=== PATIENT | male | born 2000 | race Asian ===

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

== ENCOUNTER 2025-02-03 19:34 | Inpatient (IN) ==
[2025-02-03] MEDS: SODIUM CHLORIDE 0.9% 1,000 ML IV ONE ×2 (20:08→22:08)
[2025-02-03 20:20] LABS: Hematocrit (blood only) 49.2 % (42.0-52.0); Hemoglobin 16.7 g/dl (14.0-18.0); Immature Granulocytes # (auto) 0.03 K/uL (0.01-0.20); Immature Granulocytes % (auto) 0.2 %; Mean Corpuscular Hemoglobin 28.6 pg (25.0-34.0); Mean Corpuscular Volume 84.4 fL (80.0-100.0); Platelet Count 308 K/uL (130-400); RDW Standard Deviation 39.0 fL (36.4-46.3); Red Blood Count 5.83 M/uL (4.70-6.10); White Blood Count 12.44 K/ul (4.8-10.8)
--- NOTE | 2025-02-03 20:34 | Emergency Department Note ---
Impression & Plan Rhabdomyolysis, Myalgia ED Provider Note ED Provider Note NAME: BRANDEE HEDRICK AGE:24 SEX: Male : 2000 ARRIVES VIA: Private vehicle INFORMANT: Patient ED PROVIDER(s): Yumiko Kearney DO CHIEF COMPLAINT: Dark-colored urine, muscle cramps HPI: This is a 24-year-old male presents to the emergency department due to concern for dark-colored urine noted today as well as muscle cramps over the last 2 days since he had an intense workout on Thursday. Patient states he was concerned for rhabdomyolysis as he has seen this happen before but never sought any medical evaluation. He denies fevers or chills, abdominal pain, back pain, he states most of the pain is in his thighs as he had a workout on Thursday that was more concentrated on the lower bladder than the upper body. He denies any change in bowel movements. He denies any pain or discomfort with urination. He states he has been drinking lots of water over the last 2 days out of precaution. PAST MEDICAL HISTORY:See Below PAST SURGICAL HISTORY:See Below FAMILY HISTORY:See Below SOCIAL HISTORY:See Below HOME MEDICATIONS:See Below ALLERGIES:See Below VITALS:See Below PHYSICAL EXAMINATION: GENERAL: alert, well appearing, well nourished, no distress, non-toxic EYE EXAM: normal conjunctiva, PERRL and EOM's grossly intact OROPHARYNX: no exudate, no erythema, lips, buccal mucosa, and tongue normal and mucous membranes are moist NECK: supple, no nuchal rigidity, no adenopathy, non-tender LUNGS: Clear to auscultation. Normal chest wall mechanics, no w/r/r HEART: no murmurs, S1 normal and S2 normal ABDOMEN: abdomen soft, non-tender, normo-active bowel sounds, no masses, no rebound or guarding. SKIN: no rashes, petechiae, orbruising UPPER EXTREMITIES: upper extremities are grossly normal. FROM, nml pulses b/l. LOWER EXTREMITIES: No pitting edema. FROM, nml pulses b/l. Compartments soft, no joint effusions, no evidence of trauma or deformity. No pain with palpation along the major muscle groups. NEURO EXAM: Normal sensorium, cranial nerves II-XII grossly intact, normal speech, no facial droop,nogross weakness of arms, no gross weakness of legs. Gross sensation intact. No ataxia. Vital Signs: reviewed and remarkable Differential Diagnosis: HOPE, electrolyte abnormality, dehydration, rhabdomyolysis, medication adr, viral syndrome, as well as others were considered MEDICAL DECISION MAKING: THis is a 24 yo male who presents to the ER with myalgias and dark colored urine after strenuous exercise 2 days prior. He was afebrile and VS stable. Labs drawn and sent, IV established, EKG performed and interpreted at bedside, and patient placed on telemetry. He was started on IVF. Patient noted to have significantly elevated CK. No HOPE. Given concern for rhabdo, case discussed with the hospitalist team for additional evaluation and mgmt. He was continued on IVF while in theER. Patient updated on all results and verbalized understanding. Consultation(s): 2345: Discussed with Dr. Marcano, [facility] hospitalist team, for additional evaluation and management. ER Treatment Provided: See below Diagnostics Interpreted By Me: -ECG: Normal sinus at 91, rightward axis, normal intervals, no acute ST/T wave changes -Cardiac Monitoring: An order was placed for continuous cardiac monitoring. The monitor shows a rate of 80 with normal sinus rhythm. -Laboratory studies: As stated above and show below. Triage Nursing Note Reviewed Prior/Outside Records Reviewed Past Med/Surg History Problem List (Updated 02/04/25 @ 00:15 by Aubree Lopez PA-C) Leukocytosis Transaminitis Rhabdomyolysis (Acute) Myalgia (Acute) Dyspepsia Subclinical hypothyroidism (Chronic) Vitamin D deficiency (Chronic) Seborrheic dermatitis of scalp (Chronic) Medical History Vitamin D deficiency Subclinical hypothyroidism Anal fistula Surgical History History of rectal surgery (02/21/22) History of oral surgery Perirectal abscess Family History Denies family history of Ovarian cancer Prostate cancer Diabetes Coronary heart disease Dementia Depression No family history of adverse response to anesthesia Heart disease Myocardial infarction Breast cancer Lung cancer Colorectal cancer Stroke Social History (Updated 01/08/24 @ 13:37 by Elsa Talamantes LPN) Smoking Status: Former smoker Tobacco Type: Cigarettes Age Started Using Tobacco: 19; Age Quit Using Tobacco: 19; packs per day: 0.4; Second Hand Exposure: No; Do You Dip or Chew Tobacco: No; Hx Alcohol Use: Yes Alcohol type: beer, wine and hard liquor Alcohol Intake Frequency: 2-4 x/Month Hx Substance Use: No Preferred Language: Yemeni Communication Ability: Effective Visual Impairment: Partially Limited Hearing Ability: Normal Dry Kiln Burner Required: No Beliefs That Will Affect Care: None marital status: Single Current Living Situation: Parent Current Living Situation Comment: mother current occupational status: employed 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 How many Children do You have: 0 Other Information That Helps Us Care for You: No Feels Safe at Home: Yes Safety Concerns: Feels Safe At This Time Childhood Exposure to Second-Hand Smoke: No Diet: regular Diet Comment: watching calorie intake caffeine: Yes during the past year weight has: decreased > 10 lbs Dental Care, Regularly: No Physical Activity Frequency: Does not Exercise Seatbelt Use: always Sunscreen Use: Yes Assistive Devices: Glasses Allergies Allergies Allergy/AdvReac Type Severity Reaction Status Date / Time No Known Allergies Allergy Verified 02/03/25 20:46 Home Meds Home Medications Medication Instructions Recorded Confirmed bupropion HCl 300 mg 24 hr tablet, 300 mg PO DAILY 02/03/25 02/03/25 extended release dextroamphetamine-amphetamine ER 15 mg PO DAILY 02/03/25 02/03/25 15 mg 24hr capsule,extend release Results & Data (ED) Vital Signs Vital Signs - 24 hr 02/03/25 23:03 02/04/25 00:00 02/04/25 00:03 Pulse Rate 79 80 Respiratory Rate 22 Blood Pressure 138/85 183/120 H Blood Pressure Mean 102 136 Pulse Oximetry 97 Oxygen Delivery Method Room Air Laboratory Data 02/04/25 05:31 02/04/25 14:03 Lab Results 02/03/25 Range/Units 19:57 WBC 12.44 H (4.8-10.8) K/ul RBC 5.83 (4.70-6.10) M/uL Hgb 16.7 (14.0-18.0) g/dl Hct 49.2 (42.0-52.0) % MCV 84.4 (80.0-100.0) fL MCH 28.6 (25.0-34.0) pg MCHC 33.9 (32.0-36.0) g/dL RDW Std Deviation 39.0 (36.4-46.3) fL RDW Coeff of Aneta 12.8 (11.5-14.5) % Plt Count 308 (130-400) K/uL MPV 10.1 (9.4-12.4) fL Immature Gran % (Auto) 0.2 % Neut % (Auto) 70.9 % Lymph % (Auto) 20.6 % [place] % (Auto) 7.6 % Eos % (Auto) 0.5 % Baso % (Auto) 0.2 % Neut # (Auto) 8.82 H (1.40-6.50) K/uL Lymph # (Auto) 2.56 (1.20-3.40) K/uL [place] # (Auto) 0.94 H (0.11-0.59) K/uL Eos # (Auto) 0.06 (0.00-0.50) K/uL Baso # (Auto) 0.03 (0.00-0.20) K/uL Immature Gran # (Auto) 0.03 (0.01-0.20) K/uL Sodium 137 (136-145) mmol/L Potassium 4.0 (3.5-5.1) mmol/L Chloride 104 (98-107) mmol/L Carbon Dioxide 25 (21-32) mmol/L Anion Gap 8 (3-11) BUN 12 (6-23) mg/dl Creatinine 0.94 (0.6-1.4) mg/dl Est Cr Clr Drug Dosing 142.6 ml/min eGFR 114.66 BUN/Creatinine Ratio 12.8 (10-20) Glucose 134 H (70-99(Fasting)) mg/dl Calcium 8.8 (8.6-10.3) mg/dl Magnesium 2.1 (1.7-2.4) mg/dl Total Bilirubin 0.4 (0.2-1.0) mg/dl AST 385 H (13-39) U/L ALT 65 H (7-52) U/L Alkaline Phosphatase 55 (34-104) U/L Total Creatine Kinase 79742 H (30-223) U/L Total Protein 7.5 (6.0-8.3) gm/dl Albumin 4.3 (3.4-5.0) gm/dl Globulin 3.2 (2.5-4.0) gm/dl Albumin/Globulin Ratio 1.3 (0.9-2) Lipase 26 (11-82) U/L Urine Color [place] Urine Appearance Clear (Clear) Urine pH 5.5 (4.5-7.5) Ur Specific [place] 1.042 H (1.000-1.030) Urine Protein 4+ H (Negative) Urine Glucose (UA) Trace H (Negative) Urine Ketones 1+ H (Negative) Urine Blood 3+ H (Negative) Urine Nitrite Negative (Negative) Urine Bilirubin 2+ H (Negative) Urine Urobilinogen Negative (Negative) Ur Leukocyte Esterase 1+ H (Negative) Urine WBC (Auto) 0-5 (0-5) /hpf Urine RBC (Auto) 0-2 (0-2) /hpf U Hyaline Cast (Auto) 3-5 H (0-2) /lpf U Epithel Cells (Auto) 3-5 H (0-2) /hpf Urine Bacteria (Auto) None Seen (None Seen) Urine Mucus Present A (None Prsent) Urine Comment Administered Medications Bupropion HCl (Bupropion Xl 300 Mg Tabcr) 300 mg PO DAILY [facility] Stop: 03/06/25 08:59 Last Admin: 02/04/25 08:19 Dose: 300 mg Documented By: RAFAEL Sodium Chloride (Nss) 1,000 mls @ 250 mls/hr IV .Q4H SURI Stop: 02/06/25 23:44 Last Admin: 02/04/25 22:35 Dose: 250 mls/hr Documented By: Infusion: 02/04/25 22:34 Dose: Infused Documented By: Admin: 02/04/25 18:34 Dose: 250 mls/hr Documented By: Infusion: 02/04/25 18:34 Dose: Infused Documented By: Admin: 02/04/25 14:38 Dose: 250 mls/hr Documented By: Infusion: 02/04/25 14:16 Dose: Infused Documented By: Admin: 02/04/25 10:16 Dose: 250 mls/hr Documented By: Infusion: 02/04/25 10:16 Dose: Infused Documented By: Admin: 02/04/25 05:16 Dose: 200 mls/hr Documented By: Infusion: 02/04/25 05:16 Dose: Infused Documented By: K Infusion: 02/04/25 01:34 Dose: 200 mls/hr Documented By: Admin: 02/03/25 23:56 Dose: 125 mls/hr Documented By: CTK Discontinued Medications Sodium Chloride (Nss) 1,000 mls @ 999 mls/hr IV .Q1H1M ONE Stop: 02/03/25 21:04 Last Infusion: 02/03/25 22:06 Dose: Infused Documented By: [facility] Admin: 02/03/25 20:08 Dose: 999 mls/hr Documented By: ANNETTE Sodium Chloride (Nss) 1,000 mls @ 999 mls/hr IV .Q1H1M ONE Stop: 02/03/25 22:38 Last Infusion: 02/03/25 23:12 Dose: Infused Documented By: [facility] Admin: 02/03/25 22:08 Dose: 999 mls/hr Documented By: [facility] Discharge Plan Visit Data Chief Complaint: Urinary Symptoms Stated Complaint: RHABDOMYALISIS ED Provider: Yumiko Kearney Discharge Problem: Rhabdomyolysis, Myalgia Patient Disposition: Admitted As Inpatient Condition: Fair Discharge Instructions Interventions: ED Discharge Assessment Last Done: 02/04/25 01:04
[2025-02-03 20:37] LABS: Appearance Urine Clear (Clear); Bacteria Urine Automated None Seen (None Seen); Glucose Urine UA Trace (Negative); RBC Urine Automated 0-2 /hpf (0-2); WBC Urine Automated 0-5 /hpf (0-5)
[2025-02-03 20:38] LABS: Anion Gap 8.0 (3-11); Blood Urea Nitrogen 12.0 mg/dl (6-23); Calcium 8.8 mg/dl (8.6-10.3); Carbon Dioxide 25.0 mmol/L (21-32); Chloride 104.0 mmol/L (98-107); Creatinine Clr Calc Pharmacy 142.6 ml/min; Glucose 134.0 mg/dl (70-99(Fasting)); Potassium 4.0 mmol/L (3.5-5.1); Sodium 137.0 mmol/L (136-145)
[2025-02-03 20:47] LABS: Alanine Aminotransferase 65.0 U/L (7-52); Albumin Globulin Ratio 1.3 (0.9-2); Alkaline Phosphatase 55.0 U/L (34-104); Bilirubin,Total 0.4 mg/dl (0.2-1.0); Globulin 3.2 gm/dl (2.5-4.0); Lipase 26.0 U/L (11-82); Magnesium 2.1 mg/dl (1.7-2.4); Total Protein 7.5 gm/dl (6.0-8.3)
[2025-02-03 21:23] LABS: Creatine Kinase 73240.0 U/L (30-223)
[2025-02-03] MEDS: SODIUM CHLORIDE 0.9% 1,000 ML IV SCH (23:56)
--- NOTE | 2025-02-04 | History & Physical Report ---
Date of Service February 04, 2025 Assessment & Plan (1) Rhabdomyolysis: (2) Transaminitis: (3) Leukocytosis: (4) Myalgia: Plan 24-year-old male with past medical history of ADHD and anxiety. Patient presented due to concern for rhabdomyolysis after an intense workout on Thursday. He developed muscle cramps and on Thursday did not urinate until 8 PM in which his urine was [place]. [place] [address]. #rhabdomyolysis/transaminitis/leukocytosis after intense workout 02/01. [place]BC 12.44 [place] [address]. AST 385, ALT 65. UA consistent with rhabdomyolysis. Renal function and electrolytes stable - received 2L NSS bolus in ED; continue fluid resuscitation with NSS at 200 mL/hour Promote oral hydration Trend CK, CBC, CMP, mag Will avoid Tylenol given transaminitis, Toradol as needed ordered - EKG ordered, monitor on telemetry #mental health continue bupropion, holding dextroamphetamine given NF and patient will not need while inpatient VTE ppx: SCDs Dispo: med/tele Admission and Anticipated Discharge Date Admission Date: 02/04/25 History of Present Illness Chief Complaint: urinary symptoms Primary Care Provider: RTUHIE Bolivar 24-year-old male with past medical history of ADHD and anxiety. Patient presented due to concern for rhabdomyolysis after an intense workout on . He developed muscle cramps and on Thursday did not urinate until 8 PM in which his urine was [place] [address]. Patient seen at bedside. He stated he has not worked out in over a year and did not sense weightlifting workout including squats on the. he woke up with some significant soreness and had a difficult time getting out of bed. He did some research and thought he might of had rhabdomyolysis however he was checking his urine all day and it was okay. Today when he woke up he did not have any until about 8 PM and stated it was dark brown so he came into the ED immediately. He has been trying to drink plenty of fluids including fluids with electrolytes at home. He denies any fevers, chest pain, shortness of breath. He denies any nicotine use, socially drinks alcohol. He wishes to be full code. Allergies Allergy/AdvReac Type Severity Reaction Status Date / Time No Known Allergies Allergy Verified 02/03/25 20:46 Home Medications Medication Instructions Recorded Confirmed Type bupropion HCl 300 mg 24 hr tablet, 300 mg PO DAILY 02/03/25 02/03/25 History extended release dextroamphetamine-amphetamine ER 15 mg PO DAILY 02/03/25 02/03/25 History 15 mg 24hr capsule,extend release Past Med/Surg History Problem List (Updated 02/04/25 @ 00:15 by Aubree Lopez PA-C) Leukocytosis Transaminitis Rhabdomyolysis (Acute) Myalgia (Acute) Dyspepsia Subclinical hypothyroidism (Chronic) Vitamin D deficiency (Chronic) Seborrheic dermatitis of scalp (Chronic) Medical History Vitamin D deficiency Subclinical hypothyroidism Anal fistula Surgical History History of rectal surgery (02/21/22) History of oral surgery Perirectal abscess Family History Denies family history of Ovarian cancer Prostate cancer Diabetes Coronary heart disease Dementia Depression No family history of adverse response to anesthesia Heart disease Myocardial infarction Breast cancer Lung cancer Colorectal cancer Stroke Social History (Updated 01/08/24 @ 13:37 by Elsa Talamantes LPN) Smoking Status: Former smoker Tobacco Type: Cigarettes Age Started Using Tobacco: 19; Age Quit Using Tobacco: 19; packs per day: 0.4; Second Hand Exposure: No; Do You Dip or Chew Tobacco: No; Hx Alcohol Use: Yes Alcohol type: beer, wine and hard liquor Alcohol Intake Frequency: 2-4 x/Month Hx Substance Use: No Preferred Language: Polish Communication Ability: Effective Visual Impairment: Partially Limited Hearing Ability: Normal Fusion Juncture Grinder Required: No Beliefs That Will Affect Care: None marital status: Single Current Living Situation: Parent Current Living Situation Comment: mother current occupational status: employed 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 How many Children do You have: 0 Other Information That Helps Us Care for You: No Feels Safe at Home: Yes Safety Concerns: Feels Safe At This Time Childhood Exposure to Second-Hand Smoke: No Diet: regular Diet Comment: watching calorie intake caffeine: Yes during the past year weight has: decreased > 10 lbs Dental Care, Regularly: No Physical Activity Frequency: Does not Exercise Seatbelt Use: always Sunscreen Use: Yes Assistive Devices: Glasses Review of Systems Review of Systems: see HPI Physical Exam Physical Exam: The patient is awake, alert and oriented 3, well developed and well nourished, normocephalic and atraumatic, in no acute distress. Non-toxic appearing. HEENT- EOMI, mucous membranes moist. Hearing grossly intact. Heart-normal S1 and S2. No murmurs, rubs or gallops. Lungs-clear bilaterally, no respiratory distress, no accessory muscle use. Abdomen-normal bowel sounds and soft. No ascites noted. Non-tender. Extremities- no clubbing, cyanosis, or edema. Rheumatologic-normal range of motion. Psychiatric-normal affect. Results & Data Results & Data Vital Signs (Past 12 Hours) Vital Signs Pulse Pulse Resp BP BP Pulse Ox O2 Del Method 02/03/25 23:03 79 22 138/85 97 Room Air 02/03/25 22:33 65 19 133/72 98 Room Air 02/03/25 21:00 83 23 154/83 H 97 Room Air 02/03/25 20:18 90 17 152/93 H 97 Room Air 02/03/25 19:54 98 H 02/03/25 19:40 128 H 20 137/85 95 Room Air Laboratory Results Reviewed CBC, CMP, CK, UA, magnesium ECG Additional Comments: ordered Code Status & VTE Plan Code Status full code VTE Prophylaxis Plan VTE Prophylaxis will be ordered: Yes Supervising Physician Co-Signing Physician Notes Patient seen and examined, chart reviewed, case discussed with JEAN CLAUDE Lopez and I agree with the assessment and plan as above. In brief, patient is a 24yo male with history of ADHD and Anxiety presenting with rhabdomyolysis. Patient worked out with a security trainer on Thursday. Developed significant pain in his thighs on and noted dark brown colored urine on Thursday. Elevated CK. Pain in his thighs bilaterally. No numbness, tingling. No additional complaints. On exam he is afebrile, HD stable SKin - no rash HEENT - MMM, Neck supple Heart - +S1/S2, regular, no m/r/g Lungs - CTA Abd - soft, NT/ND Ext - warm, compartments soft, 2+ pulses Labs and images reviewed Assessment/Plan -Continue aggressive IVF -Monitor UOP -REpeat chemistry and CK in AM -Remainder as above PG Care Time/CCT Total # of Minutes Spent Total Time Spent with Patient: Total time spent is greater than 50% in coordination of care (as documented) at patient's floor/unit and/or counseling patient: Coding Level of Care Code 72978 INT INP/OBS CARE 3/75MIN Diagnoses Rhabdomyolysis M62.82 Transaminitis R74.01 Leukocytosis D72.829 Myalgia M79.10
[2025-02-04] MEDS ORDERED: ONDANSETRON INJ 2 MG/ML 2 ML VIAL IV PRN (01:33)
[2025-02-04] MEDS ORDERED: MELATONIN 3 MG TAB PO PRN (01:33)
[2025-02-04] MEDS ORDERED: KETOROLAC TROMETHAMINE 15 MG/ML VIAL IV PRN (01:33)
[2025-02-04 06:24] LABS: Alanine Aminotransferase 52.0 U/L (7-52); Albumin Globulin Ratio 1.5 (0.9-2); Alkaline Phosphatase 39.0 U/L (34-104); Anion Gap 4.0 (3-11); Bilirubin,Total 0.5 mg/dl (0.2-1.0); Blood Urea Nitrogen 8.0 mg/dl (6-23); Calcium 7.8 mg/dl (8.6-10.3); Carbon Dioxide 27.0 mmol/L (21-32); Chloride 110.0 mmol/L (98-107); Creatinine Clr Calc Pharmacy 202.9 ml/min; Globulin 2.3 gm/dl (2.5-4.0); Glucose 112.0 mg/dl (70-99(Fasting)); Magnesium 1.9 mg/dl (1.7-2.4); Potassium 4.1 mmol/L (3.5-5.1); Sodium 141.0 mmol/L (136-145); Total Protein 5.7 gm/dl (6.0-8.3)
[2025-02-04 06:42] LABS: Hematocrit (blood only) 39.6 % (42.0-52.0); Hemoglobin 13.6 g/dl (14.0-18.0); Immature Granulocytes # (auto) 0.03 K/uL (0.01-0.20); Immature Granulocytes % (auto) 0.3 %; Mean Corpuscular Hemoglobin 29.3 pg (25.0-34.0); Mean Corpuscular Volume 85.3 fL (80.0-100.0); Platelet Count 247 K/uL (130-400); RDW Standard Deviation 39.0 fL (36.4-46.3); Red Blood Count 4.64 M/uL (4.70-6.10); White Blood Count 10.28 K/ul (4.8-10.8)
[2025-02-04 09:15] LABS: Creatine Kinase 47900.0 U/L (30-223)
[2025-02-04 14:48] LABS: Anion Gap 3.0 (3-11); Blood Urea Nitrogen 7.0 mg/dl (6-23); Calcium 8.4 mg/dl (8.6-10.3); Carbon Dioxide 28.0 mmol/L (21-32); Chloride 108.0 mmol/L (98-107); Creatinine Clr Calc Pharmacy 180.9 ml/min; Glucose 106.0 mg/dl (70-99(Fasting)); Potassium 4.6 mmol/L (3.5-5.1); Sodium 139.0 mmol/L (136-145)
--- NOTE | 2025-02-04 15:48 | Hospitalist Progress Note ---
Date of Service February 04, 2025 -- NOT BILLABLE Assessment & Plan (1) Rhabdomyolysis: (2) Transaminitis: (3) Leukocytosis: (4) Myalgia: Plan 24-year-old male with past medical history of ADHD and anxiety. Patient presented due to concern for rhabdomyolysis after an intense workout on Thursday. He developed muscle cramps and on Thursday did not urinate until 8 PM in which his urine was brown. [place] [address]. #rhabdomyolysis/transaminitis/leukocytosis CBC/ BMP stable Continue IVF @ 250ml/hr CK downtrending --> [address] to [address] w/ repeat pending. LFTs downtrending w/ AST 287/ALT 52 Promote PO hydration Toradol prn #mental health continue bupropion, holding dextroamphetamine given NF and patient will not need while inpatient VTE ppx: SCDs Dispo: med/tele updated patient's mother at bedside 02/04. Admission and Anticipated Discharge Date Admission Date: February 04, 2025 Ezekiel Tavarez was seen and examined this morning. His mom present. He reports he is feeling better but is still having some muscle aches. denies any additional complaints. Physical Exam Physical Exam: General: no acute distress; non-toxic appearing; well-nourished; cooperative HEENT: normocephalic, atraumatic; no scleral icterus; PERRLA w/ EOMs intact; vision and hearing grossly intact Neck: trachea midline Skin: warm, dry without signs of tenting; no cyanosis; no rashes, bruising, lesions, or erythema noted Lungs: no acute respiratory distress; symmetrical chest wall expansion MSK:no edema noted in the LEs b/l, nonerythematous Neuro: A&Ox3; normal mood and affect; fluent speech; no focal deficits Results & Data Results & Data Vital Signs (Past 12 Hours) Vital Signs Temp Pulse Pulse Resp BP BP Pulse Ox 02/04/25 14:55 63 02/04/25 12:12 36.8 C 73 18 126/80 97 02/04/25 07:28 36.3 C L 82 18 126/76 98 02/04/25 07:13 60 02/04/25 03:47 36.5 C 71 16 106/64 97 O2 Del Method 02/04/25 14:55 02/04/25 12:12 Room Air 02/04/25 07:28 Room Air 02/04/25 07:13 02/04/25 03:47 Room Air PG Care Time/CCT Total # of Minutes Spent Total Time Spent with Patient: Total time spent is greater than 50% in coordination of care (as documented) at patient's floor/unit and/or counseling patient: Coding Level of Care Code None Diagnoses Rhabdomyolysis M62.82 Transaminitis R74.01 Leukocytosis D72.829 Myalgia M79.10
[2025-02-04 16:49] LABS: Creatine Kinase 81900.0 U/L (30-223)
[2025-02-05 08:02] LABS: Hematocrit (blood only) 39.3 % (42.0-52.0); Hemoglobin 13.3 g/dl (14.0-18.0); Immature Granulocytes # (auto) 0.01 K/uL (0.01-0.20); Immature Granulocytes % (auto) 0.1 %; Mean Corpuscular Hemoglobin 29.1 pg (25.0-34.0); Mean Corpuscular Volume 86.0 fL (80.0-100.0); Platelet Count 246 K/uL (130-400); RDW Standard Deviation 40.6 fL (36.4-46.3); Red Blood Count 4.57 M/uL (4.70-6.10); White Blood Count 7.70 K/ul (4.8-10.8)
[2025-02-05 08:51] LABS: Alanine Aminotransferase 67.0 U/L (7-52); Albumin Globulin Ratio 1.6 (0.9-2); Alkaline Phosphatase 35.0 U/L (34-104); Anion Gap 3.0 (3-11); Bilirubin,Total 0.5 mg/dl (0.2-1.0); Blood Urea Nitrogen 8.0 mg/dl (6-23); Calcium 8.0 mg/dl (8.6-10.3); Carbon Dioxide 27.0 mmol/L (21-32); Chloride 108.0 mmol/L (98-107); Creatine Kinase 56200.0 U/L (30-223); Creatinine Clr Calc Pharmacy 205.6 ml/min; Globulin 2.2 gm/dl (2.5-4.0); Glucose 92.0 mg/dl (70-99(Fasting)); Potassium 4.2 mmol/L (3.5-5.1); Sodium 138.0 mmol/L (136-145); Total Protein 5.8 gm/dl (6.0-8.3)
--- NOTE | 2025-02-05 10:02 | Hospitalist Progress Note ---
Date of Service February 05, 2025 Assessment & Plan (1) Rhabdomyolysis: (2) Transaminitis: (3) Leukocytosis: (4) Myalgia: Plan 24-year-old male with past medical history of ADHD and anxiety. Patient presented due to concern for rhabdomyolysis after an intense workout on Thursday. He developed muscle cramps and on Thursday did not urinate until 8 PM in which his urine was [place]. [place] [address]. #rhabdomyolysis/transaminitis/leukocytosis CBC/ BMP stable Continue IVF @ 300ml/hr CK --> 04456 to [address]78 to [id number] w/ repeat this afternoon. LFTs stable w/ AST 302/ALT 67 Promote PO hydration Toradol prn AM CBC, CMP, CK #mental health continue bupropion, holding dextroamphetamine given NF and patient will not need while inpatient VTE ppx: SCDs Dispo: med/tele updated patient's mother at bedside 02/04. Admission and Anticipated Discharge Date Admission Date: February 04, 2025 Ezekiel Tavarez was seen and examined this morning. He reports to be feeling well today, states his muscle cramps have subsided. He reports he is urinating ~ every half hour. Reports urine is clear. Physical Exam Physical Exam: General: no acute distress; non-toxic appearing; well-nourished; cooperative HEENT: normocephalic, atraumatic; no scleral icterus; PERRLA w/ EOMs intact; vision and hearing grossly intact Neck: trachea midline Skin: warm, dry without signs of tenting; no cyanosis; no rashes, bruising, lesions, or erythema noted Lungs: no acute respiratory distress; symmetrical chest wall expansion MSK:no edema noted in the LEs b/l, nonerythematous Neuro: A&Ox3; normal mood and affect; fluent speech; no focal deficits Results & Data Results & Data Vital Signs (Past 12 Hours) Vital Signs Temp Pulse Pulse Resp BP Pulse Ox O2 Del Method 02/05/25 08:17 36.5 C 66 18 139/99 97 Room Air 02/05/25 07:10 56 L 02/05/25 03:54 36.6 C 73 18 112/69 98 Room Air 02/04/25 23:17 36.7 C 76 16 131/71 98 Room Air 02/04/25 22:03 71 PG Care Time/CCT Total # of Minutes Spent Total Time Spent with Patient: Total time spent is greater than 50% in coordination of care (as documented) at patient's floor/unit and/or counseling patient: Coding Level of Care Code 07701 SUB INP/OBS CARE 2/35MIN Diagnoses Rhabdomyolysis M62.82 Transaminitis R74.01 Leukocytosis D72.829 Myalgia M79.10
[2025-02-05 15:14] LABS: Anion Gap 4.0 (3-11); Blood Urea Nitrogen 9.0 mg/dl (6-23); Calcium 8.8 mg/dl (8.6-10.3); Carbon Dioxide 30.0 mmol/L (21-32); Chloride 106.0 mmol/L (98-107); Creatinine Clr Calc Pharmacy 136.4 ml/min; Glucose 100.0 mg/dl (70-99(Fasting)); Potassium 4.7 mmol/L (3.5-5.1); Sodium 140.0 mmol/L (136-145)
[2025-02-05 15:56] LABS: Creatine Kinase 59600.0 U/L (30-223)
[2025-02-06 06:54] LABS: Anion Gap 5.0 (3-11); Blood Urea Nitrogen 9.0 mg/dl (6-23); Calcium 8.4 mg/dl (8.6-10.3); Carbon Dioxide 28.0 mmol/L (21-32); Chloride 106.0 mmol/L (98-107); Creatinine Clr Calc Pharmacy 186.0 ml/min; Glucose 88.0 mg/dl (70-99(Fasting)); Potassium 4.0 mmol/L (3.5-5.1); Sodium 139.0 mmol/L (136-145)
[2025-02-06 07:18] LABS: Alanine Aminotransferase 90.0 U/L (7-52); Albumin Globulin Ratio 1.7 (0.9-2); Alkaline Phosphatase 38.0 U/L (34-104); Bilirubin,Total 0.6 mg/dl (0.2-1.0); Creatine Kinase 38831.0 U/L (30-223); Globulin 2.3 gm/dl (2.5-4.0); Magnesium 1.8 mg/dl (1.7-2.4); Total Protein 6.1 gm/dl (6.0-8.3)
--- NOTE | 2025-02-06 12:03 | Hospitalist Progress Note ---
Date of Service February 06, 2025 Assessment & Plan (1) Rhabdomyolysis: (2) Transaminitis: (3) Leukocytosis: (4) Myalgia: Plan 24-year-old male with past medical history of ADHD and anxiety. Patient presented due to concern for rhabdomyolysis after an intense workout on Thursday. He developed muscle cramps and on Thursday did not urinate until 8 PM in which his urine was brown. [place] [address]. #rhabdomyolysis/transaminitis/leukocytosis Continue IVF @ 250ml/hr mild elevation in AST improving, slight bump in ALT from 67> 90 CK now downtrendin --> 56793 --> 943168 --> 35969 Promote PO hydration Toradol prn AM CMP, CK will plan to recheck CMP and CK this afternoon there is dramatic improvement could consider discharge given his improved clinical status otherwise we will continue to monitor and give IV fluids #mental health continue bupropion, holding dextroamphetamine given NF and patient will not need while inpatient VTE ppx: SCDs Dispo: continued inpatient stay until CK downtrends further updated patient's mother at bedside 02/04. Admission and Anticipated Discharge Date Admission Date: February 04, 2025 Subjective patient seen lying in bed. Reports that he is urinating a normal amount every 1/2 hour. Reports that the urine is clear. Reports good appetite and feels pretty much back to his normal self. Denies muscle cramping, chest pain or shortness of breath. Review of Systems Review of Systems: All systems reviewed & are unremarkable except as noted in Subjective Physical Exam Physical Exam: General: NAD, VS as above Resp: normal respiratory effort, lungs clear to auscultation CV: RRR, no murmur, Abd: normal bowel sounds, non tender, no hepatosplenomegaly Extremities: Moves all extremities, no edema Neuro: A&O x3, Skin: intact, no lesions noted Results & Data Results & Data Vital Signs (Past 12 Hours) Vital Signs Temp Pulse Pulse Resp BP Pulse Ox O2 Del Method 02/06/25 07:54 97.9 F 65 16 123/76 94 Room Air 02/06/25 07:26 65 02/06/25 03:37 98.6 F 62 16 130/76 97 Room Air Laboratory Results chemistry, LFTs, CK reviewed PG Care Time/CCT Total # of Minutes Spent Total Time Spent with Patient: Total time spent is greater than 50% in coordination of care (as documented) at patient's floor/unit and/or counseling patient: Coding Level of Care Code 09269 SUB INP/OBS CARE 2/35MIN Diagnoses Rhabdomyolysis M62.82 Transaminitis R74.01 Leukocytosis D72.829 Myalgia M79.10
[2025-02-06 14:40] LABS: Alanine Aminotransferase 108.0 U/L (7-52); Albumin Globulin Ratio 1.4 (0.9-2); Alkaline Phosphatase 46.0 U/L (34-104); Anion Gap 6.0 (3-11); Bilirubin,Total 0.4 mg/dl (0.2-1.0); Blood Urea Nitrogen 8.0 mg/dl (6-23); Calcium 9.1 mg/dl (8.6-10.3); Carbon Dioxide 27.0 mmol/L (21-32); Chloride 106.0 mmol/L (98-107); Creatinine Clr Calc Pharmacy 121.7 ml/min; Globulin 2.8 gm/dl (2.5-4.0); Glucose 95.0 mg/dl (70-99(Fasting)); Potassium 4.2 mmol/L (3.5-5.1); Sodium 139.0 mmol/L (136-145); Total Protein 6.7 gm/dl (6.0-8.3)
[2025-02-06 15:00] LABS: Creatine Kinase 35103.0 U/L (30-223)
[2025-02-06] MEDS: ACETAMINOPHEN 500 MG TAB PO STA (15:39)
[2025-02-06] MEDS: DOCUSATE SODIUM 100 MG CAP PO PRN (21:40)
[2025-02-07 07:58] VITALS: PULSE 61; RESP 16; TEMP 97.9; O2SAT 98
[2025-02-07 08:13] LABS: Alanine Aminotransferase 92.0 U/L (7-52); Albumin Globulin Ratio 1.6 (0.9-2); Alkaline Phosphatase 41.0 U/L (34-104); Anion Gap 6.0 (3-11); Bilirubin,Total 0.4 mg/dl (0.2-1.0); Blood Urea Nitrogen 10.0 mg/dl (6-23); Calcium 8.7 mg/dl (8.6-10.3); Carbon Dioxide 26.0 mmol/L (21-32); Chloride 106.0 mmol/L (98-107); Creatinine Clr Calc Pharmacy 185.8 ml/min; Globulin 2.5 gm/dl (2.5-4.0); Glucose 87.0 mg/dl (70-99(Fasting)); Potassium 4.0 mmol/L (3.5-5.1); Sodium 138.0 mmol/L (136-145); Total Protein 6.5 gm/dl (6.0-8.3)
[2025-02-07 08:15] LABS: Creatine Kinase 17571.0 U/L (30-223)
--- NOTE | 2025-02-07 10:07 | Discharge Summary ---
Discharge Summary Date of Service February 07, 2025 Principal Dx & Hospital Course #1 = Principal Diagnosis (1) Rhabdomyolysis: (2) Transaminitis: (3) Leukocytosis: (4) Myalgia: Plan #rhabdomyolysis/transaminitis/leukocytosis 24-year-old male with past medical history of ADHD and anxiety. Patient presented due to concern for rhabdomyolysis after an intense workout on Thursday. He developed muscle cramps and on Thursday did not urinate until 8 PM in which his urine was [place]. [place] [address]. Had Mild AST and ALT elevations but they are improving. No alteration to kidney function. Has received 21+ Lit[place] [address]. Urinating frequently, eating and drinking without issue. Stable for discharge home today - discussed importance of increased hydration and limited lifting for the next week. #mental health continue bupropion. Resume dextroamphetamine at discharge Dispo: discharge to home today Admission HPI Per Admitting Provider 24-year-old male with past medical history of ADHD and anxiety. Patient presented due to concern for rhabdomyolysis after an intense workout on Thursday. He developed muscle cramps and on Thursday did not urinate until 8 PM in which his urine was [place]. [place] [address]. Patient seen at bedside. He stated he has not worked out in over a year and did not sense weightlifting workout including squats on the. he woke up with some significant soreness and had a difficult time getting out of bed. He did some research and thought he might of had rhabdomyolysis however he was checking his urine all day and it was okay. Today when he woke up he did not have any until about 8 PM and stated it was dark brown so he came into the ED immediately. He has been trying to drink plenty of fluids including fluids with electrolytes at home. He denies any fevers, chest pain, shortness of breath. He denies any nicotine use, socially drinks alcohol. He wishes to be full code. Discharge Exam General: NAD, VS as above Resp: normal respiratory effort, lungs clear to auscultation CV: RRR, no murmur, Abd: normal bowel sounds, non tender, no hepatosplenomegaly Extremities: Moves all extremities, no edema Neuro: A&O x3, Skin: intact, no lesions noted Discharge Plan Discharge Items Patient Disposition: Home - Self-Care Reason For Visit: RHABDO Discharge Diagnosis: Rhabdomylsis Condition on Discharge: Fair Activity: As commented below Activity Comment: gradually increase. no heavy lifting for one week Bathing: No limitations Driving/Machine Use: No limitations Weightbearing: Full weightbearing Non-emergency contact: Primary Care Provider Call non-emergency contact if: you have any medication questions, your symptoms worsen and your temperature is above 101 Follow-up/Referrals: Bassam Daley, RUTHIE [Primary Care Provider] - (follow up within one week ) Diet: Regular Addtl Attending Provider Instructions: Mr. Ndiaye, You were hospitalized after have decreased urine output from working out found to have rhabdomylsis. You received multiple liters of IV fluids during your stay and your Creatine Kinase level has downtrended from 80K to 17K. It is important that you are staying hydrated at home to make sure this continues to downtrend to normal levels Recommendations: Drink 3+ Liters of fluids - water or electrolyte drinks everyday, to ensure that urine stream is clear and you are still urinating about every hour Gradually introduce exercise, no heavy lifting for at least a week Avoid alcohol for the next week Do not drink heavily after working out Please follow up with your PCP in the next 1-2 weeks Return to the ER with any worsening pain or inability to urinate. Severe chest pain or shortness of breath. Thanks for allowing us to participate in your care! Pending Studies at Discharge: No Stand-Alone Forms: [facility] [employer], Smoking Cessation Medications and DC Order Prescriptions: Continued dextroamphetamine-amphetamine 15 mg capsule,extended release 24hr 15 mg PO DAILY bupropion HCl 300 mg tablet extended release 24 hr 300 mg PO DAILY Discharge Orders: Discharge Order (Routine); Ordered 02/07/25 Ordered By: Krystal Story/Other Patient Handouts: Rhabdomyolysis, ED Rhabdomyolysis Admission Data Admit Date/Time: 02/04/25 00:04 Attending Provider: Demarcus Wynne Admit Provider: Evelyn Marcano Primary Care Provider: Bassam Daley Other Providers: Evelyn Marcano Hospital Stay Data Consultations 02/04/25 00:09 ED Decision to Admit Stat Pending Results Patient Have Any Pending Studies at Discharge: No Discharge Instructions Given to Patient (Per Discharging Provider) Mr. Ndiaye, You were hospitalized after have decreased urine output from working out found to have rhabdomylsis. You received multiple liters of IV fluids during your stay and your Creatine Kinase level has downtrended from 80K to 17K. It is important that you are staying hydrated at home to make sure this continues to downtrend to normal levels Recommendations: Drink 3+ Liters of fluids - water or electrolyte drinks everyday, to ensure that urine stream is clear and you are still urinating about every hour Gradually introduce exercise, no heavy lifting for at least a week Avoid alcohol for the next week Do not drink heavily after working out Please follow up with your PCP in the next 1-2 weeks Return to the ER with any worsening pain or inability to urinate. Severe chest pain or shortness of breath. Thanks for allowing us to participate in your care! Total Time Total Time Spent Total Time Spent (In Minutes): Time spent day of discharge 33 minutes including direct patient care, medication reconciliation, documentation, review of labs and images, and coordination of care. Coding Level of Care Code 37165 INP/OBS DISCH >30 MIN Diagnoses Rhabdomyolysis M62.82 Transaminitis R74.01 Leukocytosis D72.829 Myalgia M79.10
[2025-02-07 10:09] VITALS: BP 129/80
--- NOTE | 2025-02-07 10:34 | Electrocardiogram Report ---
Test Reason : Blood Pressure : */* mmHG Vent. Rate : 91 BPM Atrial Rate : 91 BPM P-R Int : 142 ms QRS Dur : 84 ms QT Int : 392 ms P-R-T Axes : 68 91 25 degrees QTcB Int : 482 ms Normal sinus rhythm Rightward axis Prolonged QT Abnormal ECG When compared with ECG of 09-Oct-2023 02:05, T wave inversion now evident in Inferior leads Confirmed by Joel Amezquita ([id number]) on 02/07/2025 10:34:11 AM Referred By: REFERRED SELF Confirmed By: Joel Amezquita
== END 2025-02-07 11:23 | disposition home or self-care (01) | DRG 558 ==
LOC: ED 19:34 → 2W 02-04 00:04 → SUATTDRO 02-04 00:04 → 2W 02-04 01:04